=== PATIENT | male | born 1970 | race Caucasian/White ===

== ENCOUNTER 2025-07-01 01:23 | Emergency (ER) | payer OTHER ==
[~2025-07-01] VITALS: Ht 182.9 cm; Wt 90.7 kg
[2025-07-01] MEDS ORDERED: HYDROCODONE/APAP 10-325 MG TABLET ONE (02:07)
[2025-07-01] MEDS: HYDROCODONE/APAP 10-325 MG TABLET PO ONE (02:10)
[2025-07-01] MEDS ORDERED: HYDR-3980 PO (02:41)
[2025-07-01 03:05] VITALS: BP 122/77; O2SAT 99
== END 2025-07-01 03:10 | disposition home or self-care (01) ==
LOC: ER 01:34
DX: M25.551 Pain in right hip (principal); M25.511 Pain in right shoulder; R10.30 Lower abdominal pain, unspecified; F17.210 Nicotine dependence, cigarettes, uncomplicated; W18.39XA Other fall on same level, initial encounter; Y93.89 Activity, other specified; Y92.89 Other specified places as the place of occurrence of the external cause; Y99.8 Other external cause status
CPT/HCPCS: 71045; 72170; 73030; 73502; A4606; A4663